=== PATIENT | female | born 1950 | race Hispanic/Latino ===

== ENCOUNTER 2017-05-30 06:36 | Emergency (ER) | payer MEDICARE ==
[~2017-05-30] VITALS: Ht 172.7 cm; Wt 95.3 kg
[~2017-05-30 06:36] MED LIST: ALPRAZOLAM0.5 MG PO; AZATHIOPRINE50 MG PO; CALCIUM ACETAT667 M1 PO; DIALYVITE TABL1 EACH PO; LEVOTHYROXINE50 MCG PO; METOPROLOL TART25 MG PO; OMEPRAZOLE40 MG PO; VITAMIN D250000 UNIT PO; ZOFRAN ODT4 MG PO
[2017-05-30] MEDS ORDERED: HYDROMORPHONE 1MG/1ML INJ IV STA (07:23)
[2017-05-30] MEDS ORDERED: ONDANSETRON HCL INJ 2 MG/ML VIAL IV STA (07:23)
[2017-05-30] MEDS ORDERED: DEXAMETHASONE SOD PHOS INJ 4 MG/ML VIAL IV ONE (07:30)
--- NOTE | 2017-05-30 07:38 | Diagnostic Imaging Report ---
EXAMINATION: Chest, CHEST SINGLE (PORTABLE) INDICATION: Chest pain COMPARISON: Portable chest 05/10/2017 FINDINGS: LINES: Right internal jugular tunneled central venous catheter with tips projecting over the expected region of the right atrium. Heart: Normal cardiac silhouette. Vascular: The pulmonary vasculature is within normal limits. Mediastinum: No mediastinal, hilar, or axillary mass or lymphadenopathy. Lungs: No parenchymal mass. No focal consolidation. Pleura: No pleural effusion. No pneumothorax. Bones: No acute osseous abnormality. Degenerative changes of the thoracic spine. Soft tissues: Normal. Impression: No acute radiographic abnormality. Signed by: Dr. Paul Turk M.D. on 05/30/2017 7:34 AM
[2017-05-30 07:46] LABS: HEMOGLOBIN 9.2 g/dL (12.0-16.0)
[2017-05-30] MEDS ORDERED: SODIUM CHLORIDE 0.9% 250ML 250 ML ONE (07:46)
[2017-05-30 07:47] LABS: BASOPHILS % 0.2 % (0.0-1.0); EOSINOPHILS # (AUTO) 0.2 (0.0-0.4); EOSINOPHILS % 1.9 % (0.0-6.0); HEMATOCRIT 27.9 % (34.2-44.1); LYMPHOCYTES # (AUTO) 0.3 (1.0-3.2); MEAN CORPUSCULAR HEMOGLOBIN 30.7 pg (28-32); MONOCYTES # (AUTO) 0.7 (0.2-0.8); NEUTROPHILS # (AUTO) 7.1 (2.1-6.9); NEUTROPHILS % 85.4 % (38.7-80.0); PLATELET COUNT 260 x10e3/uL (140-360)
[2017-05-30 07:57] LABS: BILIRUBIN,URINE NEGATIVE (NEGATIVE); KETONES,URINE NEGATIVE (NEGATIVE); LEUKOCYTE ESTERASE ,URINE TRACE (NEGATIVE); NITRITE,URINE NEGATIVE (NEGATIVE); URINE UROBILINOGEN 0.2 mg/dL (0.2 - 1)
[2017-05-30 07:58] LABS: CLARITY,URINE CLEAR (CLEAR); COLOR,URINE YELLOW (YELLOW); PROTEIN,URINE DIPSTICK 2+ (NEGATIVE)
[2017-05-30 08:12] LABS: INR 0.98; PROTHROMBIN TIME 13.5 seconds (11.9-14.5)
[2017-05-30 08:13] LABS: PARTIAL THROMBOPLASTIN TIME 39.5 seconds (23.8-35.5)
[2017-05-30 08:28] LABS: EPITHELIAL CELLS,URINE FEW /LPF; RBC,URINE 0-5 /HPF (0-5); WBC,URINE (MAN) 0-5 /HPF (0-5)
[2017-05-30 08:31] LABS: ALANINE AMINOTRANSFERASE 13 IU/L (0-55); ALBUMIN/GLOBULIN RATIO 0.7 (0.8-2.0); ALKALINE PHOSPHATASE 201 IU/L (40-150); ANION GAP 17.6 mmol/L (8-16); BLOOD UREA NITROGEN 40 mg/dL (7-26); BUN/CREATININE RATIO 8 (6-25); CALCIUM 10.1 mg/dL (8.4-10.2); CARBON DIOXIDE 24 mmol/L (22-29); CHLORIDE 90 mmol/L (98-107); CREATINE KINASE 32 IU/L (29-168); CREATININE, SERUM 5.19 mg/dL (0.57-1.11); EST GLOMERULAR FILTRATION RATE 8 ML/MIN (60-); GLUCOSE 131 mg/dL (74-118); POTASSIUM 3.6 mmol/L (3.5-5.1); SODIUM 128 mmol/L (136-145)
[2017-05-30 09:05] LABS: TROPONIN I < 0.001 ng/mL (0-0.300)
[2017-05-30 10:41] LABS: BAND NEUTROPHILS % (MANUAL) 2 %; EOSINOPHILS % (MANUAL) 2 % (0-7); LYMPHOCYTES % (MANUAL) 5 % (19-48); MONOCYTES % (MANUAL) 4 % (3.4-9.0); NEUTROPHILS % (MANUAL) 87 % (40-74); PLATELET ESTIMATE ADEQUATE; PLATELET MORPHOLOGY COMMENT NORMAL; RBC MORPHOLOGY COMMENT NORMAL
== END 2017-05-30 10:42 | disposition home or self-care (01) ==
LOC: ER 06:36
DX: M79.621 Pain in right upper arm (principal); M75.91 Shoulder lesion, unspecified, right shoulder
CPT/HCPCS: 36415; 71010; 80053; 81001; 82550; 82553; 84484; 85025; 85610; 85730; 87086; 93005; 99284; J1100; J1170; J2405; J7050